=== PATIENT | female | born 1960 | race Caucasian/White ===

== ENCOUNTER 2022-08-20 23:23 | Emergency (ER) | payer OTHER ==
[~2022-08-20] VITALS: Ht 162.6 cm; Wt 93.0 kg
[2022-08-20 23:23] VITALS: BP 192/94
--- NOTE | 2022-08-20 23:27 | NUR ---
PAUL STRANGE TAKEN TO BED #12
[2022-08-20] MEDS ORDERED: IBUPROFEN 600 MG TAB PO ONE (23:30)
[2022-08-20] MEDS ORDERED: ACETAMINOPHEN EXTRA STRENGTH 500 MG TAB PO ONE (23:30)
--- NOTE | 2022-08-20 23:35 | NUR ---
RAD AT BEDSIDE
[2022-08-20] MEDS ORDERED: IBUP-2213 PO (23:44)
[2022-08-20] MEDS ORDERED: ACET-10509 PO (23:44)
--- NOTE | 2022-08-20 23:47 | NUR ---
BS 455. JEFERSON ALCANTARA MADE AWARE. NO FURTHER ORDERS.
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
--- NOTE | 2022-08-20 23:48 | NUR ---
PATIENT PLACED ON BEDSIDE MONITOR. BP DECREASED 139/77. JEFERSON MILLER.
--- NOTE | 2022-08-20 23:50 | NUR ---
ERMD AT BEDSIDE
[2022-08-20 23:55] VITALS: BP 139/77
--- NOTE | 2022-08-20 23:55 | NUR ---
Patient discharged with v/s stable. Written and verbal after care instructions given and explained. Patient alert, oriented and verbalized understanding of instructions. Ambulatory with steady gait. All questions addressed prior to discharge. ID band removed. Patient advised to follow up with PMD. Rx of TYLENOL AND IBUPROFEN given. Patient educated on indication of medication including possible reaction and side effects. Opportunity to ask questions provided and answered.
== END 2022-08-20 23:35 | disposition home or self-care (01) ==
LOC: MED 23:23
DX: S60.211A Contusion of right wrist, initial encounter (principal); V49.88XA Car occupant (driver) (passenger) injured in other specified transport accidents, initial encounter; Y93.89 Activity, other specified; Y92.89 Other specified places as the place of occurrence of the external cause; Y99.8 Other external cause status
CPT/HCPCS: 73110; 99283; Q0092